=== PATIENT | male | born 1980 | race Caucasian/White ===

== ENCOUNTER 2023-02-17 10:13 | Emergency (ER) | payer OTHER, SELFPAY ==
[2023-02-17 10:22] VITALS: BP 163/99; PULSE 85; RESP 16; TEMP 36.4; O2SAT 98; BMI 27.3
--- NOTE | 2023-02-17 11:21 | ED_ITS ---
HPI - Extremity Problem General Chief complaint: Extremity Problem Stated complaint: Gout R foot Time Seen by Provider: 02/17/23 11:13 Source: patient and EMS Mode of arrival: ambulatory Limitations: no limitations History of Present Illness HPI Narrative: Patient is a 42 yo male with a pmh of gout and HT here for an acute gout flare up in his right ankle.. He states he has had many flares before although it is t ypically in his toes and today it is in his right ankle. He states it began on Tuesday and has gotten progressively worse. He is using crutches and a boot to ambulate on the foot. He has been taking Colchicine and Indomethacin without relief, and his friend also gave him a couple of doses of Allopurinol. He denies constitutional symptoms such as fever, and drug use. MD Complaint: extremity pain, extremity swelling, joint swelling and joint pain Onset (ago): day(s) (5) Pain Consistency: constant Location: right and lower extremity Quality: aching Radiation: proximal Relieving factors: nothing Exacerbating factors: weight bearing and walking Associated symptoms: denies other symptoms Related Data Previous Rx's Medication Instructions Recorded prednisone 20 mg tablet 60 mg PO DAILY #15 tabs 02/17/23 Allergies Allergy/AdvReac Type Severity Reaction Status Date / Time No Known Allergies Allergy Verified 02/17/23 10:21 Review of Systems Review of Systems: Yes all other systems are reviewed and are negative [facility] Social History Social History Advance Directives: No Advance Directives Information Provided: Yes Physical Exam Vital Signs: Vital Signs: Last Vital Signs Temp 97.6 F 02/17/23 10:22 Pulse 85 02/17/23 10:22 Resp 16 02/17/23 10:22 BP 169/83 H 02/17/23 11:34 Pulse Ox 98 02/17/23 10:22 O2 Del Method Room Air 02/17/23 10:22 BMI result Body Mass Index 27.3 Appearance: Alert. Oriented X3. No acute distress. HEENT: Normal external inspection Chest: Normal inspection, equal chest rise and fall. Speaking complete sentences. No respiratory distress Extremities: Right ankle is warm, erythematous and swollen, mostly to the medial portion. He has limited ROM due to pain and swelling. Foot is warm and well perfused, 2+ DP pulse. Neuro/psych: Oriented X 3. No motor deficit. No sensory deficit. Normal speech and cognition. Medications Administered Discontinued Medications Generic Name Dose Route Start Last Admin Trade Name Ena PRN Reason Stop Dose Admin Ketorolac Tromethamine 30 mg 02/17/23 11:37 02/17/23 11:58 Ketorolac Tromethamine 30 Mg/Ml Vial IM 02/17/23 11:38 30 mg ONCE ONE Administration Lidocaine HCl 20 ml 02/17/23 11:42 02/17/23 12:00 Lidocaine Hcl 1 % 20 Ml Vial SUBCUT 02/17/23 11:43 20 ml ONCE ONE Administration Oxycodone HCl 5 mg 02/17/23 11:37 02/17/23 11:57 Oxycodone Hcl Immed Release 5 Mg Tablet PO 02/17/23 11:38 5 mg ONCE ONE Administration Prednisone 60 mg 02/17/23 11:29 02/17/23 11:33 Prednisone 20 Mg Tablet PO 02/17/23 11:30 60 mg ONCE ONE Administration Medical Decision Making Medical Decision Making [facility] Narrative: Patient presented with a nontraumatic swollen, erythematous right ankle. He has a history of gout, no constitutional symptoms or IV drug use so this is more likely to be a gout flare-up rather than a septic joint, however we performed an aspiration of synovial fluid to confirm. His cbc showed a mild leukocytosis. Joint aspiration showed WBC less than 50,000 and mono sodium urate crystals present, consistent with acute gouty arthritis. At this time he is safe for discharge with a course of prednisone. Case discussed with Dr. Harmon. Differential Diagnosis Differential Diagnoses: The differential diagnosis associated with the presentation includes Gout Pseudogout Septic arthritis DVT Cellulitis sprained ankle Admission/Observation Consideration of admission/observation: Escalation of care including admission/observation considered Possible septic joint, admission was considered for possible IV antibiotics however joint aspiration did not show any evidence of septic arthritis. Consult Healthcare Provider Management of the patient was discussed with: Donation Worker Dr. Harmon ER attending Lab Data [facility] Lab Attestation statement: I reviewed the patient's lab results. 02/17/23 11:56 Labs: Lab Results 02/17/23 02/17/23 Range/Units 11:56 12:14 WBC 12.0 H (4.8-10.8) X10*3/uL RBC 4.04 L (4.60-5.80) X10*6/uL Hgb 12.8 L (14.0-18.0) g/dl Hct 37.4 L (42.0-52.0) % MCV 92.6 (80.0-98.0) fL MCH 31.7 (27.0-33.0) pg MCHC 34.2 (31.0-36.0) g/dl RDW 11.9 (11.0-16.0) % Plt Count 200 (160-400) X10*3/uL MPV 10.2 (9.4-12.4) fL Immature Gran % (Auto) 0.4 (0.0-0.4) % Neut % (Auto) 74.3 H (45-73) % Lymph % (Auto) 14.8 L (20-40) % [place] % (Auto) 9.0 (2-11) % Eos % (Auto) 1.1 (0-4) % Baso % (Auto) 0.4 (0-2) % Lymph # (Auto) 1.8 (1.2-4.9) X10*3/uL [place] # (Auto) 1.1 (0.1-1.2) X10*3/uL Eos # (Auto) 0.1 (0.0-0.4) X10*3/uL Baso # (Auto) 0.1 (0.0-0.2) X10*3/uL Abs Immat Gran (auto) 0.05 H (0.00-0.03) X10*3/uL Absolute Neuts (auto) 8.9 H (2.0-8.3) x10*3/uL Absolute Nucleated RBC 0.000 (0.0-0.012) X10*3/uL Nucleated RBC % (auto) 0.0 (0.0-0.2) /100WBC Synovial Source ANKLE RT Synovial WBC 46.300 X10*3/uL Synovial RBC 0.007 X10*6/uL Synovial Neutrophils 90 % Synovial Lymphocytes 5 % Synovial Eosinophils 1 % Synovial Other Cells 4 Prescription Management I considered prescription management with: Pain Medication and Other (Prednison e) Chronic Conditions Patient?s care impacted by: Other (Gout) Procedures Joint Aspiration/Injection Joint Asp./Inject. 1: Time Out Performed: Yes Side of body: right Joint Aspirated: ankle Ultrasound Guidance: No Skin Prep: Povidone-Iodine1% Local Anesthetic: lidocaine 1% Amount of anesthesia used (mL): 5 Needle Size Used: Other (21G) Fluid Obtained: viscous Total fluid obtained (mL): 4 Patient Tolerated Procedure: well and no complications Complications: none Critical Care Time Critical Care Time Critical Care Time: No Discharge Plan Discharge Clinical Impression: Gout Patient Disposition: Home, Self-Care Instructions: Low Purine Diet (ED), Gout (ED) Additional Instructions: Your joint aspiration did not show any evidence of a septic joint. It showed crystals consistent with gout. Take the prescribed steroid medication as directed, takes the next dose tomorrow morning. Your given 1st dose today in the ER. Continue your colchicine. It it would be in your benefit to be started on allopurinol for gout prevention. This is not a medication to take during acute gout flares. Follow-up with your primary care doctor for further management. Or you can see public health specialist for recurrence gout, name and number below. Call for an appointment. Prescriptions: New prednisone 20 mg tablet 60 mg PO DAILY Qty: 15 0RF Referrals: [facility] [facility] [place] Group] (Recurrent gout)
[2023-02-17] MEDS: predniSONE 20 MG TABLET 60 MG PO (11:33)
[2023-02-17 11:34] VITALS: BP 169/83
[2023-02-17] MEDS: oxyCODONE HCl Immed Release 5 MG TABLET PO (11:57)
[2023-02-17] MEDS: Ketorolac Tromethamine 30 MG/ML VIAL IM (11:58)
[2023-02-17] MEDS: Lidocaine HCl 1 % 20 ML VIAL SUBCUT (12:00)
[2023-02-17 12:01] LABS: MANUAL DIFF FLAG NO
[2023-02-17 12:03] LABS: Basophils Absolute Auto 0.1 X10*3/uL (0.0-0.2); Basophils Percent Auto 0.4 % (0-2); Eosinophils Absolute Auto 0.1 X10*3/uL (0.0-0.4); Eosinophils Percent Auto 1.1 % (0-4); Hematocrit 37.4 % (42.0-52.0); Hemoglobin 12.8 g/dl (14.0-18.0); Imm Gran Abs Auto 0.05 X10*3/uL (0.00-0.03); Imm Gran Pct Auto 0.4 % (0.0-0.4); Lymphocytes Absolute Auto 1.8 X10*3/uL (1.2-4.9); Lymphocytes Percent Auto 14.8 % (20-40); Mean Corpuscular HGB Conc 34.2 g/dl (31.0-36.0); Mean Corpuscular Hemoglobin 31.7 pg (27.0-33.0); Mean Corpuscular Volume 92.6 fL (80.0-98.0); Mean Platelet Volume 10.2 fL (9.4-12.4); Monocytes Absolute Auto 1.1 X10*3/uL (0.1-1.2); Neutrophils Absolute Auto 8.9 x10*3/uL (2.0-8.3); Neutrophils Percent Auto 74.3 % (45-73); Platelet Count 200 X10*3/uL (160-400); Red Blood Count 4.04 X10*6/uL (4.60-5.80); Red Cell Distribution Width 11.9 % (11.0-16.0)
[2023-02-17 13:20] LABS: BF Shift QC OK YES; Man Diluent Bkgrd OK YES; RBC Synovial Fluid 0.007 X10*6/uL
[2023-02-17 13:41] LABS: Eosinophils Synovial Fluid 1 %; Lymphocytes Synovial Fluid 5 %; Neutrophils Synovial Fluid 90 %; Other Cells Synovial Fluid 4
== END 2023-02-17 14:38 | disposition home or self-care (01) ==
PROVIDERS: Physician Assistant; Emergency Provider Emergency Medicine
DX: M10.071 Idiopathic gout, right ankle and foot (principal); Z79.899 Other long term (current) drug therapy
CPT/HCPCS: 20610; 36415; 85025; 87070; 87073; 87205; 89051; 89060; 96372; 99283; 99285; J1885

== ENCOUNTER 2023-02-23 11:00 | Emergency (ER) | payer OTHER, SELFPAY ==
[2023-02-23 11:06] VITALS: BP 183/113; PULSE 81; RESP 20; TEMP 36.6; O2SAT 98; BMI 28.1
--- NOTE | 2023-02-23 11:07 | ED.GENADULT ---
HPI - General Adult General Chief complaint: Extremity Problem Stated complaint: Gout Time Seen by Provider: 02/23/23 11:58 Source: patient Limitations: no limitations History of Present Illness HPI narrative: 42-year-old male with longstanding history of gout recently diagnosed after ankle aspirate here with gouty arthritis. Patient finished prednisone taper and colchicine b.i.d. with not much relief. Patient has been on indomethacin the past with not much relief. Patient does have also history of hypertension. Pain is 10/10 increased with range of motion weight-bearing. Patient denies any recent injuries or falls. Symptoms moderate. Related Data Previous Rx's Medication Instructions Recorded prednisone 20 mg tablet 60 mg PO DAILY #15 tabs 02/17/23 colchicine 0.6 mg tablet 0.6 mg PO BID PRN gout pain #10 02/22/23 tabs colchicine 0.6 mg capsule 0.6 mg PO Q2H PRN pain #20 caps 02/23/23 naproxen 500 mg tablet,delayed 500 mg PO BID #30 tabs 02/23/23 release (EC-Naprosyn) oxycodone 5 mg tablet 5 mg PO BID PRN pain #14 tabs 02/23/23 Allergies Allergy/AdvReac Type Severity Reaction Status Date / Time No Known Allergies Allergy Verified 02/17/23 10:21 Review of Systems Review of Systems: General: No fever, no chills ENT: No sore throat, no ear pain Cardiovascular: No chest pain, no peripheral edema, no shortness of breath Respiratory: No dyspnea, no sputum production, no cough Muscle skeletal: Right ankle foot pain GI:no nausea vomiting, no diarrhea Skin: No rash Immunology: No immunocompromised Hematology: No bleeding, no bruising PMFSH Past Medical History Attestation statement: The following information was validated with the patient. Physical Exam ED Vital Signs: Vital Signs - 24 hr 02/23/23 11:06 Temperature 97.9 F Pulse Rate 81 Respiratory Rate 20 Blood Pressure 183/113 H Pulse Oximetry 98 Oxygen Delivery Method Room Air BMI result Body Mass Index 28.1 General appearance: Awake, alert, cooperative, in no acute distress Skin: Warm, dry, no rash Eyes: PERRL, EOMI, no icterus ENT: Oropharynx normal, uvula midline Neck: Soft supple full range of motion Pulmonary: Breath sounds clear to auscultation bilaterally, no accessory muscle use Cardiovascular: Regular rate and rhythm, no murmurs and rubs Extremities: Diffuse tenderness right ankle hypersensitive to the touch Neuro: Alert oriented x3, no focal deficit Psych: Normal affect Course Course Course Narrative: This is an RME: Additional HPI, ROS, PE not included below will be deferred to primary provider. This is a 42 y/o M, hx of gout, presenting for evaluation of right ankle and foot pain x 1 week. Patient was seen here on February 17 for a gout flare was prescribed prednisone, did not realize he had to continue taking colchicine. He started this again last night, which has provided him wtih some relief, however his symptoms have not fully resolved and is frustrated as he is unable to work with his symptoms. Ambulatory with crutches and post op shoe. Pt stable to return to the waiting room until treatment room becomes available. BP elevated at 183/113, all other vital signs WNL. Medical Decision Making Medical Decision Making MDM Narrative: Acute gouty arthritis Right foot pain Pseudogout 42-year-old male with confirmed diagnosis of gout with crystals on joint aspirate recently patient recently finished prednisone taper with colchicine minimal relief current pain at this time. Discussed at length with patient about placing patient on Naprosyn getting patient out free in follow-up with PCP to get on allopurinol. At this time will plan to give patient a course of Naprosyn short course of oxycodone and will change the directions of his colchicine at this time. Discharge Plan Discharge Clinical Impression: Gout attack Patient Disposition: Home, Self-Care Instructions: Low Purine Diet (ED), Gout (ED) Additional Instructions: Medications as directed Take Naprosyn twice a day Colchicine as directed Follow-up with PCP to get on preventive maintenance medication such as allopurinol Prescriptions: New oxycodone 5 mg tablet 5 mg PO BID PRN (Reason: pain) Qty: 14 0RF Rx Instructions: Partial Fill upon patient request. naproxen [EC-Naprosyn] 500 mg tablet,delayed release (DR/EC) 500 mg PO BID Qty: 30 0RF colchicine 0.6 mg capsule 0.6 mg PO Q2H PRN (Reason: pain) Qty: 20 0RF Rx Instructions: Take every 2 hours till relief for pain or diarrhea with a max dose of 3 pills a day No Action prednisone 20 mg tablet 60 mg PO DAILY Qty: 15 0RF colchicine 0.6 mg tablet 0.6 mg PO BID PRN (Reason: gout pain) Qty: 10 0RF
[2023-02-23 12:30] VITALS: BP 142/88; PULSE 67; RESP 18; O2SAT 96
== END 2023-02-23 12:33 | disposition home or self-care (01) ==
PROVIDERS: Emergency Provider Emergency Medicine
DX: M10.9 Gout, unspecified (principal); M25.571 Pain in right ankle and joints of right foot; Z79.899 Other long term (current) drug therapy
CPT/HCPCS: 99283; 99284

== ENCOUNTER 2023-09-14 09:51 | Emergency (ER) | payer OTHER, SELFPAY ==
--- NOTE | ~2023-09-14 | XR_ITS ---
EXAMINATION: XR FOOT, RIGHT CLINICAL INFORMATION: Gout COMPARISON: None available. TECHNIQUE: AP, lateral, and oblique views of the right foot. FINDINGS: No fracture or malalignment. Bone mineralization is normal. Joint spaces appear well-preserved. No erosions are identified. Focal cortical thickening at the medial margin of the third metatarsal shaft may be due to an old stress reaction or old healed fracture. Mild soft tissue swelling in the forefoot. XR/XR foot RT min 3V IMPRESSION: Mild soft tissue swelling in the forefoot. No acute osseous findings. No erosions. No evidence of gout.
[2023-09-14 11:01] VITALS: BP 166/101; PULSE 87; RESP 18; TEMP 36.6; O2SAT 98; BMI 28.1
--- NOTE | 2023-09-14 11:18 | ED.GENADULT ---
HPI - General Adult General Chief complaint: Extremity Injury, Lower Stated complaint: Gout R Foot Time Seen by Provider: 09/14/23 11:18 Source: patient Mode of arrival: ambulatory Limitations: no limitations History of Present Illness HPI narrative: Patient is a 43 year old assigned male at with a history of gout presenting to the emergency department today with right foot pain. Patient states that the pain started in his right heel and expanded down his right foot. Patient states that it is now somewhat in his ankle. Patient states that he thought it was his gout so he took gout medicine. Patient denies any dizziness, lightheadedness, abdominal pain, nausea, vomiting, fever, chills, blurry vision, double vision, loss of vision, chest pain, difficulty breathing, shortness of breath, back pain, night sweats, pain with urination, increased urinary frequency, increased urinary urgency, blood in his urine or stool, syncope or a near syncopal episode, recent trauma or falls, bowel incontinence, bladder incontinence, bowel retention, bladder retention, or any other complaints at this time. Onset (ago): day(s) (1) Location: right and lower extremity Severity: mild Severity scale (1-10): 3 Quality: aching and dull Pain Consistency: constant Relieving factors: none Exacerbating factors: movement Associated symptoms: denies other symptoms Treatments prior to arrival: other (gout medication) Related Data Previous Rx's Medication Instructions Recorded prednisone 20 mg tablet 60 mg (3 x 20 mg) PO DAILY #15 tabs 02/17/23 colchicine 0.6 mg tablet 0.6 mg PO BID PRN gout pain #10 02/22/23 tabs colchicine 0.6 mg capsule 0.6 mg PO Q2H PRN pain #20 caps 02/23/23 naproxen 500 mg tablet,delayed 500 mg PO BID #30 tabs 02/23/23 release (EC-Naprosyn) oxycodone 5 mg tablet 5 mg PO BID PRN pain #10 tabs 02/23/23 prednisone 20 mg tablet 20 mg PO DAILY 7 days #7 tabs 09/14/23 Allergies Allergy/AdvReac Type Severity Reaction Status Date / Time No Known Allergies Allergy Verified 09/14/23 11:01 Review of Systems Constitutional: Constitutional: Reports no additional constitutional complaints, Denies chills, Denies fever(s) and Denies night sweats Eyes: Eyes: Reports no additional eye complaints, Denies blurry vision, Denies change in vision, Denies diplopia, Denies eye discharge, Denies loss of vision and Denies eye pain ENT: Denies dizziness Cardiovascular: Cardiovascular: Reports no additional cardiovascular complaints, Denies chest pain, Denies lightheadedness, Denies Loss of Consciousness and Denies dyspnea Respiratory: Respiratory: Reports no additional respiratory complaints and Denies dyspnea Gastrointestinal: Gastrointestinal: Reports no additional gastrointestinal complaints, Denies abdominal pain, Denies melena, Denies hematochezia, Denies change in bowel habits and Denies change in stool character Genitourinary: Genitourinary: Reports no additional male genitourinary complaints, Denies hematuria, Denies oliguria, Denies difficulty urinating, Denies dysuria, Denies urinary frequency, Denies urinary hesitancy, Denies urinary incontinence and Denies urinary urgency Musculoskeletal: Musculoskeletal: Reports no additional musculoskeletal complaints, Denies numbness and Denies tingling Comments: right foot pain Neurologic: Denies dizziness, Denies loss of vision, Denies numbness and Denies tingling Psychiatric: Psychiatric: Reports no additional psychiatric complaints Endocrine: Endocrine: Reports no additional endocrine complaints Hematologic/Lymphatic: Hematologic/Lymphatic: Reports no additional hematologic/lymphatic complaints Allergic/Immunologic: Allergic/Immunologic: Reports no additional allergic/immunologic complaints [facility] Past Medical History Attestation statement: The following information was validated with the patient. Source: old records reviewed and nursing notes reviewed Social History Social History Alcohol intake: never Advance Directives: No Advance Directives Information Provided: No Physical Exam ED Vital Signs: Vital Signs - 24 hr 09/14/23 11:01 Temperature 98 F Pulse Rate 87 Respiratory Rate 18 Blood Pressure 166/101 H Pulse Oximetry 98 Oxygen Delivery Method Room Air BMI result Body Mass Index 28.1 Const General: cooperative, no acute distress, alert and awake Nutritional Appearance: well nourished Orientation/consciousness: patient oriented x3 Limitations: no limitations HENMT Head: Yes normal to inspection and Yes atraumatic Ears: hearing grossly normal bilaterally and external ears normal General nose exam: Normal external nose present, no nasal discharge noted and no epistaxis Face and sinus: Yes normal facial exam, No abrasion and No laceration Mouth: Normal oral and palatal mucosa present, no drooling and no muffled voice Eyes General: appearance normal, both eyes and all related structures Periorbital: periorbital findings normal Eyelids: Yes eyelids normal Conjunctivae: conjunctivae normal Pupils: Equal, round and reactive pupils present EOM: EOMs intact bilaterally Neck Neck: Yes normal visual inspection, Yes full ROM and Yes no lymphadenopathy Chest Chest palpation & inspection: normal inspection of the chest Resp Effort & Inspection: normal respiratory effort and able to speak in complete sentences GI Inspection: Yes normal to inspection Neuro General: patient oriented x3 and moves all extremities Cranial nerves: Yes Equal, round and reactive pupils present Cognition (Neuro): normal cognition Motor exam (neuro): 5/5 motor strength present throughout Sensory Exam: Normal double simultaneous stimulation for sensation Coordination: [id number] test normal Extrem General: Yes normal to inspection, Yes full ROM and Yes capillary refill normal Psych Appearance: grossly normal Mental Status: mental status grossly normal Affect: normal affect Attitude: cooperative Thought process: Normal thought process present Thought content: Normal thought content present Insight: Good insight present (Psych) Medications Administered Discontinued Medications Generic Name Dose Route Start Last Admin Trade Name Ena PRN Reason Stop Dose Admin Ketorolac Tromethamine 15 mg 09/14/23 11:39 09/14/23 11:52 Ketorolac Tromethamine 15 Mg/Ml Vial IM 09/14/23 11:40 15 mg ONCE ONE Administration Prednisone 20 mg 09/14/23 11:39 09/14/23 11:47 Prednisone 20 Mg Tablet PO 09/14/23 11:40 20 mg ONCE ONE Administration Medical Decision Making Medical Decision Making [facility] Narrative: Patient is a 43 year old assigned male at with a history of gout presenting to the emergency department today with right foot pain. Patient's physical exam was unremarkable. Patient's right foot x-ray showed no acute process. I explained my physical exam findings as well as all test results to the patient. I answered all questions asked by the patient. I stressed the importance of the patient taking his medication as prescribed. I stressed the importance of the patient following up with his primary care provider. I stressed the importance of the patient returning to the emergency department immediately if his symptoms were to worsen or if he were to develop any dizziness, shortness of breath, difficulty breathing, chest pain, blurry vision, loss of vision, nausea, vomiting, abdominal pain, fever, chills, back pain, or any other complaints. Patient verbalized agreement and understanding with this treatment plan and discharge. Differential Diagnosis Differential Diagnoses: The differential diagnosis associated with the presentation includes Plantar fasciitis Foot pain Gout Admission/Observation Consideration of admission/observation: Escalation of care including admission/observation considered Patient would have been admitted to the hospital had his work up had any findings where hospital admission was appropriate and his clinical presentation warranted hospital admission. Independent Interpretation I performed an independent interpretation of an: Plain X-Ray Interpretation: My interpretation is in agreement with the radiologist's impression of this imaging study. EXAMINATION: XR FOOT, RIGHT CLINICAL INFORMATION: Gout COMPARISON: None available. TECHNIQUE: AP, lateral, and oblique views of the right foot. FINDINGS: No fracture or malalignment. Bone mineralization is normal. Joint spaces appear well-preserved. No erosions are identified. Focal cortical thickening at the medial margin of the third metatarsal shaft may be due to an old stress reaction or old healed fracture. Mild soft tissue swelling in the forefoot. XR/XR foot RT min 3V IMPRESSION: Mild soft tissue swelling in the forefoot. No acute osseous findings. No erosions. No evidence of gout. Dictated By: n Signed By: Electronically signed by n 09/14/23 2562 Radiology Impression Discussion of test interpretation with radiology: I have reviewed the radiologist's reading. Prescription Management I considered prescription management with: Pain Medication (patient prescribed pain medication) Discharge Plan Discharge Clinical Impression: Plantar fasciitis Patient Disposition: Home, Self-Care Instructions: Plantar Fasciitis (ED), Plantar Fasciitis Exercises (ED) Additional Instructions: Follow up with your primary care provider and an orthopedic provider. Return to the emergency department immediately if your symptoms worsen or if you develop any dizziness, shortness of breath, difficulty breathing, chest pain, blurry vision, loss of vision, nausea, vomiting, abdominal pain, fever, chills, back pain, or any other complaints. Prescriptions: New prednisone 20 mg tablet 20 mg PO DAILY 7 Days Qty: 7 0RF No Action prednisone 20 mg tablet 60 mg PO DAILY Qty: 15 0RF colchicine 0.6 mg tablet 0.6 mg PO BID PRN (Reason: gout pain) Qty: 10 0RF naproxen [EC-Naprosyn] 500 mg tablet,delayed release (DR/EC) 500 mg PO BID Qty: 30 0RF colchicine 0.6 mg capsule 0.6 mg PO Q2H PRN (Reason: pain) Qty: 20 0RF Rx Instructions: Take every 2 hours till relief for pain or diarrhea with a max dose of 3 pills a day oxycodone 5 mg tablet 5 mg PO BID PRN (Reason: pain) Qty: 10 0RF Rx Instructions: Partial Fill upon patient request. [place] [facility] [place] (Call to establish and follow up with a primary care provider. If you already have a primary care provider, please follow up with them.) [facility] [place] [Provider Group] (Call to establish and follow up with a primary care provider. If you already have a primary care provider, please follow up with them.) [facility] [place] [Provider Group] (Call to establish and follow up with a primary care provider. If you already have a primary care provider, please follow up with them.) [facility] [place] [facility] [Provider Group] (Call to establish and follow up with an orthopedic provider.) Stand Alone Forms: Work/School Release Interventions: ED Discharge Assessment Last Done: 09/14/23 11:56 Discharge Date/Time: 09/14/23 11:57 Print Language: Thai
[2023-09-14] MEDS: predniSONE 20 MG TABLET PO (11:47)
[2023-09-14] MEDS: Ketorolac Tromethamine 15 MG/ML VIAL IM (11:52)
== END 2023-09-14 11:57 | disposition home or self-care (01) ==
PROVIDERS: Emergency Provider Emergency Medicine Emergency Medical Services
DX: M72.2 Plantar fascial fibromatosis (principal); M10.071 Idiopathic gout, right ankle and foot
CPT/HCPCS: 73630; 96372; 99283; 99284; J1885

== ENCOUNTER 2023-09-16 10:21 | Emergency (ER) | payer OTHER, SELFPAY ==
--- NOTE | ~2023-09-16 | XR_ITS ---
EXAMINATION: XR ANKLE, RIGHT CLINICAL INFORMATION: Pain COMPARISON: None available. TECHNIQUE: AP, lateral, and mortise views of the right ankle. FINDINGS: No fracture. Alignment is anatomic. No erosions. Joint spaces are maintained. Soft tissues are normal. XR/XR ankle RT min 3V IMPRESSION: Normal right ankle.
[2023-09-16 10:26] VITALS: BP 176/102; PULSE 85; RESP 18; TEMP 37.2; O2SAT 100; BMI 28.6
[2023-09-16 11:46] LABS: MANUAL DIFF FLAG NO
[2023-09-16 11:47] LABS: Basophils Absolute Auto 0.1 X10*3/uL (0.0-0.2); Basophils Percent Auto 0.5 % (0-2); Eosinophils Absolute Auto 0.1 X10*3/uL (0.0-0.4); Eosinophils Percent Auto 0.6 % (0-4); Hematocrit 39.8 % (42.0-52.0); Hemoglobin 13.7 g/dl (14.0-18.0); Imm Gran Abs Auto 0.07 X10*3/uL (0.00-0.03); Imm Gran Pct Auto 0.6 % (0.0-0.4); Lymphocytes Absolute Auto 2.5 X10*3/uL (1.2-4.9); Lymphocytes Percent Auto 19.8 % (20-40); Mean Corpuscular HGB Conc 34.4 g/dl (31.0-36.0); Mean Corpuscular Hemoglobin 31.6 pg (27.0-33.0); Mean Corpuscular Volume 91.7 fL (80.0-98.0); Mean Platelet Volume 9.8 fL (9.4-12.4); Monocytes Absolute Auto 0.9 X10*3/uL (0.1-1.2); Monocytes Percent Auto 7.5 % (2-11); Neutrophils Absolute Auto 8.8 x10*3/uL (2.0-8.3); Platelet Count 280 X10*3/uL (160-400); Red Blood Count 4.34 X10*6/uL (4.60-5.80); Red Cell Distribution Width 11.5 % (11.0-16.0); White Blood Count 12.4 X10*3/uL (4.8-10.8)
[2023-09-16 12:06] LABS: Anion Gap 13 (12-20); Blood Urea Nitrogen 12 mg/dL (9-16); Calcium 10.5 mg/dL (8.4-10.2); Carbon Dioxide 30 mmol/L (22-29); Chloride 102 mmol/L (96-108); Creatinine Clr Calc Pharmacy 141.2; Estimated Glomerular Filt Rate > 60; Glucose Random 134 mg/dL (60-115); Potassium 4.5 mmol/L (3.3-5.1); Sodium 140 mmol/L (135-145); Uric Acid 7.1 mg/dL (3.4-7.0)
--- NOTE | 2023-09-16 14:34 | ED_ITS ---
HPI - Extremity Problem General Chief complaint: Extremity Problem Stated complaint: gout ? Time Seen by Provider: 09/16/23 11:12 History of Present Illness HPI Narrative: Patient complains of right ankle pain which has been going on since Tuesday it started in his foot and now his ankle is very painful with weight-bearing but there is no pain when he is not weight-bearing, it is swollen there is no change in color, he can bear weight on it but it is painful, he denies any redness no fever, he has had no recent trauma He was seen rate here Tuesday and told it might be gout it might be plantar fasciitis and he was started on prednisone as well as colchicine which have brought no relief or improvement In the past he has had gout in various joints and the colchicine and prednisone work right away, this is different as an prior gout flares it hurt all the time not just with weight-bearing right now he has no pain if he is not putting weight on it Related Data Previous Rx's Medication Instructions Recorded prednisone 20 mg tablet 60 mg (3 x 20 mg) PO DAILY #15 tabs 02/17/23 colchicine 0.6 mg tablet 0.6 mg PO BID PRN gout pain #10 02/22/23 tabs colchicine 0.6 mg capsule 0.6 mg PO Q2H PRN pain #20 caps 02/23/23 naproxen 500 mg tablet,delayed 500 mg PO BID #30 tabs 02/23/23 release (EC-Naprosyn) oxycodone 5 mg tablet 5 mg PO BID PRN pain #10 tabs 02/23/23 prednisone 20 mg tablet 20 mg PO DAILY 7 days #7 tabs 09/14/23 colchicine 0.6 mg tablet 0.6 mg PO BID Gout #10 tabs 09/16/23 naproxen 500 mg tablet (Naprosyn) 500 mg PO BID PRN pain #20 tabs 09/16/23 Allergies Allergy/AdvReac Type Severity Reaction Status Date / Time No Known Allergies Allergy Verified 09/14/23 11:01 [facility] Past Medical History Source: nursing notes reviewed Social History Social History Alcohol intake: never Advance Directives: No Advance Directives Information Provided: No Physical Exam 2 Vital Signs: Vital Signs: Last Vital Signs Temp 98.9 F 09/16/23 10:26 Pulse 85 12/22/23 10:26 Resp 16 09/16/23 14:39 BP 176/102 H 09/16/23 10:26 Pulse Ox 100 09/16/23 10:26 BMI result Body Mass Index 28.6 General appearance comfortable, cooperative no acute distress Neck is supple Respiratory no distress Extremities the right ankle is mildly swollen, no obvious of fusion, it has almost full range of motion comfortably but there is some limited on full flexion compared to the other side, but range of motion is very good and painless He can bear weight but it is very uncomfortable but he can walk without crutches There is no redness or warmth there is no break in the skin, it is tender around the ankle and the dorsum of the proximal foot, sensation and motor are intact distal Other extremities are normal Neuro no focal motor sensory deficits Course Course Course Narrative: Range of motion is very good there is no redness or warmth, only pain is with weight-bearing, septic joint very unlikely, swelling is minimal Gout is unlikely as the presentation is different this time from before, it only hurts with weight-bearing and it did not respond to colchicine or prednisone from the prior visit, NSAIDs have not helped either X-ray was normal, labs were nondiagnostic including a uric acid of 7.1 WBC count was 12.1, very mild elevation but not associated with any evidence of infection in the ankle Well-appearing patient, no evidence of septic joint is discharged to follow with orthopedics for further evaluation Medical Decision Making Lab Data MDM Lab Attestation statement: I reviewed the patient's lab results. 09/16/23 11:42 09/16/23 11:42 Labs: Lab Results 09/16/23 Range/Units 11:42 WBC 12.4 H (4.8-10.8) X10*3/uL RBC 4.34 L (4.60-5.80) X10*6/uL Hgb 13.7 L (14.0-18.0) g/dl Hct 39.8 L (42.0-52.0) % MCV 91.7 (80.0-98.0) fL MCH 31.6 (27.0-33.0) pg MCHC 34.4 (31.0-36.0) g/dl RDW 11.5 (11.0-16.0) % Plt Count 280 D (160-400) X10*3/uL MPV 9.8 (9.4-12.4) fL Immature Gran % (Auto) 0.6 H (0.0-0.4) % Neut % (Auto) 71.0 (45-73) % Lymph % (Auto) 19.8 L (20-40) % Pope % (Auto) 7.5 (2-11) % Eos % (Auto) 0.6 (0-4) % Baso % (Auto) 0.5 (0-2) % Lymph # (Auto) 2.5 (1.2-4.9) X10*3/uL Pope # (Auto) 0.9 (0.1-1.2) X10*3/uL Eos # (Auto) 0.1 (0.0-0.4) X10*3/uL Baso # (Auto) 0.1 (0.0-0.2) X10*3/uL Abs Immat Gran (auto) 0.07 H (0.00-0.03) X10*3/uL Absolute Neuts (auto) 8.8 H (2.0-8.3) x10*3/uL Absolute Nucleated RBC 0.000 (0.0-0.012) X10*3/uL Nucleated RBC % (auto) 0.0 (0.0-0.2) /100WBC Sodium 140 (135-145) mmol/L Potassium 4.5 (3.3-5.1) mmol/L Chloride 102 (96-108) mmol/L Carbon Dioxide 30 H (22-29) mmol/L Anion Gap 13 (12-20) BUN 12 (9-16) mg/dL Creatinine 0.74 (0.5-1.4) mg/dL Estim Creat Clear Calc 141.2 Estimated GFR > 60 Random Glucose 134 H (60-115) mg/dL Uric Acid 7.1 H (3.4-7.0) mg/dL Calcium 10.5 H (8.4-10.2) mg/dL Discharge Plan Discharge Clinical Impression: Arthralgia Patient Disposition: Home, Self-Care Additional Instructions: I am not sure what is causing the pain in your right ankle, it is not infected now You tried irregular gout medicines they did not help and it does not have all the characteristics of gout I am not sure what is causing the pain now so best plan is follow with Orthopedics, if it is still painful and swollen they may tap the joint to check for crystals, as the main way to diagnose gout the best way is a crystal examination Return any time for increased redness pain and swelling, if you cannot move the joint if you get a fever if you feel anything is worse you can return to the ER any time for any condition or any concerns Her blood pressure was elevated in the emergency room, best plan is use her home cuff and keep a log of the readings and if they are consistently high, over 140 bring the log to your primary doctor for possible adjustment medications Prescriptions: New naproxen [Naprosyn] 500 mg tablet 500 mg PO BID PRN (Reason: pain) Qty: 20 0RF colchicine 0.6 mg tablet 0.6 mg PO BID Qty: 10 0RF No Action prednisone 20 mg tablet 60 mg PO DAILY Qty: 15 0RF colchicine 0.6 mg tablet 0.6 mg PO BID PRN (Reason: gout pain) Qty: 10 0RF naproxen [EC-Naprosyn] 500 mg tablet,delayed release (DR/EC) 500 mg PO BID Qty: 30 0RF colchicine 0.6 mg capsule 0.6 mg PO Q2H PRN (Reason: pain) Qty: 20 0RF Rx Instructions: Take every 2 hours till relief for pain or diarrhea with a max dose of 3 pills a day oxycodone 5 mg tablet 5 mg PO BID PRN (Reason: pain) Qty: 10 0RF Rx Instructions: Partial Fill upon patient request. prednisone 20 mg tablet 20 mg PO DAILY 7 Days Qty: 7 0RF Referrals: Kendall Warren MD [Physician] - (Frequent right ankle pain and inflammation) Interventions: ED Discharge Assessment Last Done: 09/16/23 14:39 Discharge Date/Time: 09/16/23 14:40
[2023-09-16 14:39] VITALS: RESP 16
== END 2023-09-16 14:40 | disposition home or self-care (01) ==
PROVIDERS: Physician Assistant Medical; Emergency Provider Emergency Medicine Emergency Medical Services
DX: M25.571 Pain in right ankle and joints of right foot (principal); Z79.899 Other long term (current) drug therapy
CPT/HCPCS: 36415; 73610; 80048; 84550; 85025; 99283